=== PATIENT | male | born 1960 | race Caucasian/White ===

== ENCOUNTER 2017-04-29 13:37 | Emergency (ER) | payer BC ==
[~2017-04-29] VITALS: Ht 175.3 cm; Wt 89.3 kg
[2017-04-29 13:41] VITALS: TEMP 36.7; Ht 175.3 cm; Wt 89.3 kg
[2017-04-29] MEDS ORDERED: SODIUM CHLORIDE 0.9% 1000ML 1,000 ML IV STA (13:51)
[2017-04-29] MEDS ORDERED: ONDANSETRON INJ 2 MG/ML 2 ML VIAL IV STA (13:51)
--- NOTE | 2017-04-29 14:00 | EMERGENCY ROOM VISIT NOTE ---
History Report prepared by Felix: Rusty Vega Under the Supervision of: Dr. Pedro Garcia D.O. First contact with patient: 13:42 Chief Complaint: ABDOMINAL PAIN Stated Complaint: RASH,SEVERE PAIN IN LEFT SIDE, HEADACHE Nursing Triage Summary: triage note: Pt reports left sided abd pain x 1 week and pain is increasing. pt reports rash on feet, legs and arms x 1.5 weeks. pt reports headache x 1 week. History of Present Illness The patient is a 57 year old male who presents to the Emergency Room with complaints of constant left sided abdominal pain starting 3-4 days ago. The patient additionally states that the pain radiates into his chest, and it occasionally makes his short of breath. He notes that the pain does not go into his back, and the pain is worsened with eating and deep breathing. The patient states that he has been having some right leg pain, and he is having a rash on his arms and legs. He states that he is nauseous, though he denies any vomiting. He states that he has not seen a PCP yet, and he is not on any medications. The patient states that he is a binge drinker, and he drinks on the weekends. He has a history of hernia and knee surgery. He denies any history of kidney stones, blood clots, diverticulitis, diverticulosis, and he has not had a colonoscopy. Source of History: patient Onset: 3-4 days ago Position: abdomen Timing: constant Modifying Factors (Worsening): eating, other (deep breathing) Associated Symptoms: + chest pain, + SOB, + nausea, No vomiting, No back pain Review of Systems See HPI for pertinent positives & negatives. A total of 10 systems reviewed and were otherwise negative. Past Medical & Surgical Surgical Problems: (1) H/O hernia repair (2) H/O knee surgery Social History Smoking Status: Current Every Day Smoker Marital Status: Housing Status: lives with family Occupation Status: unemployed Current/Historical Medications Scheduled Ondasetron Odt (Zofran Odt), 4 MG SL Q6H Polyethylene Glycol 3350 (Miralax), 17 GM PO DAILY Allergies Coded Allergies: Acetaminophen (Unverified Allergy, Severe, FULL BODY ITCHING, 04/29/17) Oxycodone (Unverified Allergy, Severe, FULL BODY ITCHING, 04/29/17) Physical Exam Vital Signs Date Time Temp Pulse Resp B/P (MAP) Pulse Ox O2 Delivery O2 Flow Rate FiO2 04/29/17 18:01 65 15 133/94 97 04/29/17 17:40 65 15 133/94 97 Room Air 04/29/17 17:13 67 16 124/97 98 Room Air 04/29/17 16:30 63 12 123/90 95 Room Air 04/29/17 16:00 63 16 131/87 98 Room Air 04/29/17 15:00 72 128/87 97 Room Air 04/29/17 14:37 65 10 98 04/29/17 14:31 135/88 04/29/17 14:22 67 14 96 04/29/17 14:09 136/69 04/29/17 14:07 68 13 04/29/17 14:05 62 04/29/17 13:41 36.7 77 18 127/92 96 Room Air Physical Exam GENERAL: Patient is awake, alert, mildly anxious appearing. EYES: The conjunctivae are clear. The pupils are round and reactive. EARS, NOSE, MOUTH AND THROAT: The nose is without any evidence of any deformity. Mucous membranes are moist tongue is midline NECK: The neck is nontender and supple. RESPIRATORY: Normal respiratory effort is noted there is no evidence of wheezing rhonchi or rales CARDIOVASCULAR: Regular rate and rhythm noted there no murmurs rubs or gallops normal S1 normal S2 GASTROINTESTINAL: The abdomen is soft with diffuse tenderness to palpation. There was guarding in the left upper quadrant to palpation. BACK: No midline tenderness or or step-off noted range of motion in flexion extension as well as rotation no signs of muscle spasm noted MUSCULOSKELETAL/EXTREMITIES: There is no evidence of gross deformity full range of motion is noted in the hips and shoulders SKIN: There is no obvious evidence of any rash. There are no petechiae, pallor or cyanosis noted. NEUROLOGIC: Patient is awake alert and oriented x3 Medical Decision & Procedures ER Provider Diagnostic Interpretation: Radiology results as stated below per my review and radiologist interpretation: CHEST ONE VIEW PORTABLE CLINICAL HISTORY: Left-sided abdominal pain. COMPARISON STUDY: No previous studies for comparison. FINDINGS: There is no lucency under the hemidiaphragms to suggest pneumoperitoneum on this exam. Lung volumes are normal. Lungs are clear. No pneumothorax or pleural effusion is present. Pulmonary vascularity is normal. The cardiomediastinal silhouette is normal. IMPRESSION: No acute cardiopulmonary findings. Electronically signed by: Humble Cotto M.D. 04/29/2017 2:16 PM Dictated Date/Time: 04/29/2017 2:[address] ABD/PELVIS IV AND ORAL CONT CLINICAL HISTORY: Left upper quadrant abdominal pain COMPARISON STUDY: None. TECHNIQUE: Following the IV administration of 93 mL of Optiray-320, CT scan of the abdomen and pelvis was performed from the lung bases to the proximal femurs. Images are reviewed in the axial, sagittal, and coronal planes. IV contrast was administered without complication. A dose lowering technique was utilized adhering to the principles of ALARA. CT DOSE: 624.13 mGycm FINDINGS: Lower chest: There are bilateral dependent atelectatic changes Liver: There are tiny subcentimeter hypodensities present within the left lobe. These are too small to characterize but are likely benign. There is a 7 mm hypodensity within the right lobe. Again this is too small to characterize but likely benign Gallbladder: Unremarkable. Spleen: Normal in size and attenuation. Pancreas: Unremarkable. Adrenal glands: Unremarkable. Kidneys: There is extensive lower pole left renal cortical scarring. No solid renal masses are visualized. There is no hydronephrosis. Bowel: There are no transition zones indicate bowel obstruction. The appendix appears normal. There are scattered colonic diverticula. There is no acute diverticulitis. Peritoneum: There is no intraperitoneal free air or abdominal ascites. Vasculature: The abdominal aorta is normal in course and caliber. Adenopathy: Para-aortic lymph nodes are the upper limits of normal in size. Pelvic viscera: There is mild bladder wall thickening. Skeletal structures: No destructive osseous lesions are seen. IMPRESSION: 1. No evidence of bowel obstruction. No evidence of free air 2. Normal appendix 3. No evidence of acute diverticulitis 4. Mild bladder wall thickening 5. Left renal cortical scarring 6. Scattered nonspecific para-aortic nodes at the upper limits of normal in size Electronically signed by: Laz Montgomery M.D. 04/29/2017 5:19 PM Dictated Date/Time: 04/29/2017 5:15 PM Laboratory Results 04/29/17 14:05 Red Blood Count 5.19, Mean Corpuscular Volume 91.5, Mean Corpuscular Hemoglobin 32.4, Mean Corpuscular Hemoglobin Concent 35.4, Mean Platelet Volume 11.1, Neutrophils (%) (Auto) 65.4, Lymphocytes (%) (Auto) 23.8, Monocytes (%) (Auto) 8.8, Eosinophils (%) (Auto) 1.1, Basophils (%) (Auto) 0.5, Neutrophils # (Auto) 3.66, Lymphocytes # (Auto) 1.33, Monocytes # (Auto) 0.49, Eosinophils # (Auto) 0.06, Basophils # (Auto) 0.03 04/29/17 14:05 Test 04/29/17 14:05 04/29/17 16:23 White Blood Count 5.59 K/uL (4.8-10.8) Red Blood Count 5.19 M/uL (4.7-6.1) Hemoglobin 16.8 g/dL (14.0-18.0) Hematocrit 47.5 % (42-52) Mean Corpuscular Volume 91.5 fL (80-100) Mean Corpuscular Hemoglobin 32.4 pg (25-34) Mean Corpuscular Hemoglobin Concent 35.4 g/dl (32-36) Platelet Count 194 K/uL (130-400) Mean Platelet Volume 11.1 fL (7.4-10.4) Neutrophils (%) (Auto) 65.4 % Lymphocytes (%) (Auto) 23.8 % Monocytes (%) (Auto) 8.8 % Eosinophils (%) (Auto) 1.1 % Basophils (%) (Auto) 0.5 % Neutrophils # (Auto) 3.66 K/uL (1.4-6.5) Lymphocytes # (Auto) 1.33 K/uL (1.2-3.4) Monocytes # (Auto) 0.49 K/uL (0.11-0.59) Eosinophils # (Auto) 0.06 K/uL (0-0.5) Basophils # (Auto) 0.03 K/uL (0-0.2) RDW Standard Deviation 44.2 fL (36.4-46.3) RDW Coefficient of Variation 13.1 % (11.5-14.5) Immature Granulocyte % (Auto) 0.4 % Immature Granulocyte # (Auto) 0.02 K/uL (0.00-0.02) Prothrombin Time 10.2 SECONDS (9.0-12.0) Prothromb Time International Ratio 1.0 (0.9-1.1) Activated Partial Thromboplast Time 27.0 SECONDS (21.0-31.0) Partial Thromboplastin Ratio 1.0 Anion Gap 11.0 mmol/L (3-11) Est Creatinine Clear Calc Drug Dose 109.8 ml/min Estimated GFR () 114.2 Estimated GFR (Non- 98.6 BUN/Creatinine Ratio 16.4 (10-20) Calcium Level 9.2 mg/dl (8.5-10.1) Total Bilirubin 0.9 mg/dl (0.2-1) Direct Bilirubin 0.2 mg/dl (0-0.2) Aspartate Amino Transf (AST/SGOT) 17 U/L (15-37) Alanine Aminotransferase (ALT/SGPT) 32 U/L (12-78) Alkaline Phosphatase 62 U/L (45-117) Troponin I < 0.015 ng/ml (0-0.045) Total Protein 7.1 gm/dl (6.4-8.2) Albumin 4.3 gm/dl (3.4-5.0) Lipase 216 U/L (73-393) Urine Color YELLOW Urine Appearance CLEAR (CLEAR) Urine pH 5.0 (4.5-7.5) Urine Specific [place] 1.017 (1.000-1.030) Urine Protein NEG (NEG) Urine Glucose (UA) NEG (NEG) Urine Ketones NEG (NEG) Urine Occult Blood NEG (NEG) Urine Nitrite NEG (NEG) Urine Bilirubin NEG (NEG) Urine Urobilinogen NEG (NEG) Urine Leukocyte Esterase NEG (NEG) Laboratory results per my review. Medications Administered Medications (Trade) Dose Ordered Sig/Ricky Route Start Time Stop Time Status Last Admin Dose Admin Sodium Chloride 1,000 ml @ 999 mls/hr Q1H1M STAT IV 04/29/17 13:51 04/29/17 14:51 DC 04/29/17 14:19 999 MLS/HR Ondansetron HCl (Zofran Inj) 4 mg NOW STAT IV 04/29/17 13:51 04/29/17 13:53 DC 04/29/17 14:19 4 MG ECG Indication: abdominal pain Rate (beats per minute): 63 Rhythm: normal sinus Findings: no ectopy, other (No acute ST segment abnormality) Comparison ECG Date: no prior available ED Course 1342: The patient was evaluated in room A2. A complete history and physical examination were performed. 1351: Zofran 4mg IV, NSS 1,000 ml @ 999 mls/hr IV 1731: Upon reevaluation, the patient is doing well. I discussed the results and treatment plan with him. He verbalized agreement of the treatment plan. He was discharged home. Medical Decision Differential diagnosis: Etiologies such as appendicitis, diverticulitis, PUD, biliary pathology, UTI, pancreatitis, obstruction, mesenteric ischemia, aortic pathology, infections, inflammatory bowel disease, renal colic, as well as others were entertained. Nursing notes reviewed. The patient is a 57-year-old male who presented to the emergency department for evaluation of abdominal pain. The patient very significant abdominal pain on physical exam. He did not have an elevated white blood cell count. He did not appear to have chest pain be given his age and risk factors EKG and cardiac biomarkers were obtained. The patient was treated with IV fluids in the emergency department. I discussed the patient's laboratory and radiographic studies with him. No definite cause for the patient's abdominal pain could be found. He was encouraged to rest and avoid any strenuous ectopy. He was also encouraged to continue all medications as prescribed and follow-up with his family doctor soon as possible. Otherwise she was encouraged to return to the emergency department immediately if symptoms change worsen or the need arises. Medication Reconcilliation Current Medication List: was personally reviewed by me Blood Pressure Screening Patient's blood pressure: Normal blood pressure Impression Primary Impression: Left sided abdominal pain Scribe Attestation The scribe's documentation has been prepared under my direction and personally reviewed by me in its entirety. I confirm that the note above accurately reflects all work, treatment, procedures, and medical decision making performed by me. Departure Information Dispostion Home / Self-Care Prescriptions Polyethylene Glycol 3350 (MIRALAX) 1 Pow Pow 17 GM PO DAILY, #527 GM Prov: Pedro Garcia, DO 04/29/17 Ondasetron Odt (ZOFRAN ODT) 4 Mg Tab 4 MG SL Q6H for Nausea, #20 TAB Prov: Pedro Garcia, DO 04/29/17 Referrals No Doctor, Assigned (PCP) Forms Call Back Authorization, HOME CARE DOCUMENTATION FORM, IMPORTANT VISIT INFORMATION, Work Instructions Patient Instructions ED Abdominal Pain Unkn Cause Male, My [facility] Additional Instructions Call your family to schedule a follow-up appointment. Rest and avoid any straining his activity. Try a clear liquid diet for the next 24-48 hours. Return to the emergency apartment immediately symptoms change worsen or the need arises. Try using Motrin or Tylenol as directed for pain.
[2017-04-29] MEDS ORDERED: OPTIRAY 320 IV PRN (14:15)
--- NOTE | 2017-04-29 14:17 | DIAGNOSTIC IMAGING REPORT ---
CHEST ONE VIEW PORTABLE CLINICAL HISTORY: Left-sided abdominal pain. COMPARISON STUDY: No previous studies for comparison. FINDINGS: There is no lucency under the hemidiaphragms to suggest pneumoperitoneum on this exam. Lung volumes are normal. Lungs are clear. No pneumothorax or pleural effusion is present. Pulmonary vascularity is normal. The cardiomediastinal silhouette is normal. IMPRESSION: No acute cardiopulmonary findings. Electronically signed by: Humble Cotto M.D. 04/29/2017 2:16 PM Dictated Date/Time: 04/29/2017 2:15 PM
[2017-04-29 14:22] LABS: BASO % 0.5 %; BASO ABS # 0.03 K/uL (0-0.2); COMPLETE YES; EOS % 1.1 %; HEMATOCRIT 47.5 % (42-52); IG% 0.4 %; LYMPH % 23.8 %; LYMPH ABS # 1.33 K/uL (1.2-3.4); MEAN CELL VOLUME 91.5 fL (80-100); MEAN CORPUSCULAR HEMOGLOBIN 32.4 pg (25-34); MEAN CORPUSCULAR HGB CONC 35.4 g/dl (32-36); MEAN PLATELET VOLUME 11.1 fL (7.4-10.4); MONO % 8.8 %; NEUT % 65.4 %; PLATELET COUNT 194 K/uL (130-400); RED BLOOD COUNT 5.19 M/uL (4.7-6.1); WHITE BLOOD COUNT 5.59 K/uL (4.8-10.8)
[2017-04-29 14:33] LABS: PROTHROMBIN TIME (PATIENT) 10.2 SECONDS (9.0-12.0)
[2017-04-29 14:53] LABS: ALT/SGPT 32 U/L (12-78); AST/SGOT 17 U/L (15-37); BLOOD UREA NITROGEN 14 mg/dl (7-18); BUN/CREATININE RATIO 16.4 (10-20); CALCIUM 9.2 mg/dl (8.5-10.1); CARBON DIOXIDE 20 mmol/L (21-32); CHLORIDE 105 mmol/L (98-107); CREATININE 0.84 mg/dl (0.60-1.40); GLUCOSE 95 mg/dl (70-99); POTASSIUM 4.1 mmol/L (3.5-5.1); SODIUM 135 mmol/L (136-145)
[2017-04-29 14:55] LABS: ALKALINE PHOSPHATASE 62 U/L (45-117)
[2017-04-29 16:35] LABS: URINE APPEARANCE CLEAR (CLEAR); URINE BILIRUBIN NEG (NEG); URINE COLOR YELLOW; URINE NITRITE NEG (NEG); URINE SPECIFIC GRAVITY 1.017 (1.000-1.030); UROBILINOGEN NEG (NEG)
[2017-04-29 16:38] LABS: MANUAL MICROSCOPIC REQUIRED? NO; REVIEW REQ? NO
--- NOTE | 2017-04-29 17:20 | DIAGNOSTIC IMAGING REPORT ---
CT ABD/PELVIS IV AND ORAL CONT CLINICAL HISTORY: Left upper quadrant abdominal pain COMPARISON STUDY: None. TECHNIQUE: Following the IV administration of 93 mL of Optiray-320, CT scan of the abdomen and pelvis was performed from the lung bases to the proximal femurs. Images are reviewed in the axial, sagittal, and coronal planes. IV contrast was administered without complication. A dose lowering technique was utilized adhering to the principles of ALARA. CT DOSE: 624.13 mGycm FINDINGS: Lower chest: There are bilateral dependent atelectatic changes Liver: There are tiny subcentimeter hypodensities present within the left lobe. These are too small to characterize but are likely benign. There is a 7 mm hypodensity within the right lobe. Again this is too small to characterize but likely benign Gallbladder: Unremarkable. Spleen: Normal in size and attenuation. Pancreas: Unremarkable. Adrenal glands: Unremarkable. Kidneys: There is extensive lower pole left renal cortical scarring. No solid renal masses are visualized. There is no hydronephrosis. Bowel: There are no transition zones indicate bowel obstruction. The appendix appears normal. There are scattered colonic diverticula. There is no acute diverticulitis. Peritoneum: There is no intraperitoneal free air or abdominal ascites. Vasculature: The abdominal aorta is normal in course and caliber. Adenopathy: Para-aortic lymph nodes are the upper limits of normal in size. Pelvic viscera: There is mild bladder wall thickening. Skeletal structures: No destructive osseous lesions are seen. IMPRESSION: 1. No evidence of bowel obstruction. No evidence of free air 2. Normal appendix 3. No evidence of acute diverticulitis 4. Mild bladder wall thickening 5. Left renal cortical scarring 6. Scattered nonspecific para-aortic nodes at the upper limits of normal in size Electronically signed by: Laz Montgomery M.D. 04/29/2017 5:19 PM Dictated Date/Time: 04/29/2017 5:15 PM
[2017-04-29] MEDS ORDERED: OXYC1TAB3 PO (17:32)
[2017-04-29] MEDS ORDERED: POLY335019 PO (17:33)
[2017-04-29] MEDS ORDERED: ONDA4TAB10 SL (17:33)
[2017-04-29 18:01] VITALS: BP 133/94; PULSE 65; O2SAT 97
== END 2017-04-29 18:00 | disposition home or self-care (01) ==
LOC: C.EDB 13:38 → C.EDA 18:00
DX: R10.9 Unspecified abdominal pain (principal); F17.200 Nicotine dependence, unspecified, uncomplicated